=== PATIENT | female | born 1990 | race African-American/Black ===

== ENCOUNTER 2016-12-22 08:47 | Emergency (ER) | payer OTHER ==
[~2016-12-22] VITALS: Ht 165.1 cm; Wt 78.5 kg
[~2016-12-22 08:47] MED LIST: CARB6.5S5 AU; DIFL150T PO; PENI500T PO; Z.0.BCPILL PO; Z.0.NO CURRENT MEDS
[2016-12-22 09:01] VITALS: BP 118/66; PULSE 93; RESP 16; TEMP 98.8
--- NOTE | 2016-12-22 09:25 | PD ---
HPI Chief Complaint: Headache Time Seen by Provider: 09:20 Travel History International Travel<30 days: No Contact w/Intl Traveler<30days: No Traveled to known affect area: No History of Present Illness HPI Patient presents with complaints of queasiness since Friday. Denies vomiting diarrhea or fever. Denies . Denies new rash. Denies chest pain shortness of breath urinary or bowel symptoms. PFSH Past Medical History Medical History: Denies Significant Hx Diminished Hearing: No Immunizations Current: Yes Tetanus Vaccination: > 5 Years Influenza Vaccination: No ?: Unknown LMP: november 01 : 0 Social History Alcohol Use: No Tobacco Use: No Substance Use: No Allergies-Medications (Allergen,Severity, Reaction): Coded Allergies: No Known Allergies (Verified , 12/22/16) Reported Meds & Prescriptions Reported Meds & Active Scripts Active No Active Prescriptions or Reported Medications Review of Systems General / Constitutional: No: Fever Eyes: No: Visual changes HENT: No: Headaches Cardiovascular: No: Chest Pain or Discomfort Respiratory: No: Shortness of Breath Gastrointestinal: No: Abdominal Pain Genitourinary: No: Dysuria Musculoskeletal: No: Pain Skin: No Rash Neurologic: No: Weakness Psychiatric: No: Depression Endocrine: No: Polydipsia Hematologic/Lymphatic: No: Easy Bruising Physical Exam Narrative GENERAL: Well-nourished, well-developed patient. SKIN: Focused skin assessment warm/dry. HEAD: Normocephalic. EYES: No scleral icterus. No injection or drainage. NECK: Supple, trachea midline. No JVD or lymphadenopathy. CARDIOVASCULAR: Regular rate and rhythm without murmurs, gallops, or rubs. RESPIRATORY: Breath sounds equal bilaterally. No accessory muscle use. GASTROINTESTINAL: Abdomen soft, non-tender, nondistended. MUSCULOSKELETAL: No cyanosis, or edema. BACK: Nontender without obvious deformity. No CVA tenderness. Data Data Last Documented VS Vital Signs Date Time Temp Pulse Resp B/P (MAP) Pulse Ox O2 Delivery O2 Flow Rate FiO2 12/22/16 09:50 94 16 112/62 (79) 100 Room Air 12/22/16 09:01 98.8 Orders Orders Complete Blood Count With Diff (12/22/16 09:21) Basic Metabolic Panel (Bmp) (12/22/16 09:21) Ed Urine Pregnancytest Poc (12/22/16 09:21) Ondansetron Odt (Zofran Odt) (12/22/16 09:30) Labs Laboratory Tests Test 12/22/16 09:13 White Blood Count 4.9 TH/MM3 Red Blood Count 6.25 MIL/MM3 Hemoglobin 16.2 GM/DL Hematocrit 49.7 % Mean Corpuscular Volume 79.5 FL Mean Corpuscular Hemoglobin 25.9 PG Mean Corpuscular Hemoglobin Concent 32.5 % Red Cell Distribution Width 12.2 % Platelet Count 320 TH/MM3 Mean Platelet Volume 7.3 FL Neutrophils (%) (Auto) 60.2 % Lymphocytes (%) (Auto) 28.7 % Monocytes (%) (Auto) 7.8 % Eosinophils (%) (Auto) 2.6 % Basophils (%) (Auto) 0.7 % Neutrophils # (Auto) 3.0 TH/MM3 Lymphocytes # (Auto) 1.4 TH/MM3 Monocytes # (Auto) 0.4 TH/MM3 Eosinophils # (Auto) 0.1 TH/MM3 Basophils # (Auto) 0.0 TH/MM3 CBC Comment DIFF FINAL Differential Comment Blood Urea Nitrogen 14 MG/DL Creatinine 0.99 MG/DL Random Glucose 99 MG/DL Calcium Level 8.8 MG/DL Sodium Level 138 MEQ/L Potassium Level 3.8 MEQ/L Chloride Level 105 MEQ/L Carbon Dioxide Level 24.8 MEQ/L Anion Gap 8 MEQ/L Estimat Glomerular Filtration Rate 81 ML/MIN [facility] Medical Decision Making Medical Screen Exam Complete: Yes Emergency Medical Condition: Yes Differential Diagnosis Fever, gastroenteritis, nausea vomiting, Narrative Course Assessment and plan discussed with patient at bedside Diagnosis Primary Impression: Malaise Patient Instructions: General Instructions Additional Instructions: Encouraged rest fluids and Motrin, follow-up with PCP, return to emergency room with any onset of new symptoms. Scripts Ondansetron (Zofran) 4 Mg Tab 4 MG PO Q12HR Y for NAUSEA OR VOMITING, #20 TAB 0 Refills Prov: Luis Fernando Steele MD 12/22/16 Disposition: 01 DISCHARGE HOME Condition: Good Luis Fernando Steele MD Dec 22, 2016 09:25
[2016-12-22] MEDS ORDERED: ONDANSETRON ODT 4 MG TAB PO ONE (09:30)
[2016-12-22 09:50] VITALS: BP 112/62; PULSE 94; RESP 16; O2SAT 100
[2016-12-22 09:56] LABS: BASOPHIL % 0.7 % (0.0-2.0); EOSINOPHIL # 0.1 TH/MM3 (0-0.4); EOSINOPHIL % 2.6 % (0.0-4.0); HEMATOCRIT 49.7 % (35.0-46.0); HEMO FLAGS DIFF FINAL; LYMPH % 28.7 % (9.0-44.0); LYMPHOCYTE # 1.4 TH/MM3 (1.0-4.8); MEAN CELL VOLUME 79.5 FL (80.0-100.0); MEAN CORPUSCULAR HEMOGLOBIN 25.9 PG (27.0-34.0); MEAN CORPUSCULAR HGB CONC 32.5 % (32.0-36.0); MONO % 7.8 % (0.0-8.0); NEUT % 60.2 % (16.0-70.0); PLATELET COUNT 320 TH/MM3 (150-450); RED BLOOD COUNT 6.25 MIL/MM3 (4.00-5.30); RED CELL DISTRIBUTION WIDTH 12.2 % (11.6-17.2); WHITE BLOOD COUNT 4.9 TH/MM3 (4.0-11.0)
[2016-12-22 10:05] LABS: POTASSIUM 3.8 MEQ/L (3.5-5.1)
[2016-12-22 10:08] LABS: BICARBONATE 24.8 MEQ/L (21.0-32.0)
[2016-12-22] MEDS ORDERED: ZOFR4TAB PO (10:43)
[2016-12-22 11:01] VITALS: BP 118/58
== END 2016-12-22 11:17 | disposition home or self-care (01) ==
LOC: PHED 08:47
DX: R53.81 Other malaise (principal)
CPT/HCPCS: 80048; 84703; 85025; 99283